=== PATIENT | male | born 1965 | race Caucasian/White ===

== ENCOUNTER 2019-09-20 21:12 | Emergency (ER) | payer BC ==
[2019-09-20 21:26] VITALS: BP 150/87
--- NOTE | 2019-09-20 21:34 | UC ---
Respiratory Complaint HPI - HPI Summary HPI Summary: 53-year-old male comes in with a chief complaint of cough chest congestion and chills. Patient's had upper respiratory tract infection symptoms for more than a month. He was treated with Augmentin which did improve his symptoms over the never went away completely. Last 2 days he started with all of the above symptoms. Feels the congestion worse on the left side of his chest. He does feel somewhat short of breath. Denies any wheezing. - History of Current Complaint Chief Complaint: UCRespiratory Stated Complaint: COUGH,CONGESTION Time Seen by Provider: 09/20/19 21:18 Pain Intensity: 0 - Allergies/Home Medications Allergies/Adverse Reactions: Allergies Allergy/AdvReac Type Severity Reaction Status Date / Time No Known Allergies Allergy Verified 09/20/19 21:26 Home Medications: Home Medications Dm/Acetaminophen/Doxylamine [Vicks Nyquil Cold & Flu N 15-6.25-325 mg] 1 cap PO QPM PRN 09/20/19 [History Confirmed 09/20/19] Guaifenesin/Dextromethorphan [Mucinex Dm ER 600-30 mg Tablet] 1 tab PO Q12H [History Confirmed 09/20/19] PMH/Surg Hx/FS Hx/Imm Hx Previously Healthy: Yes Cardiovascular History: Hypertension - Surgical History Surgical History: None - Family History Known Family History: Positive: Non-Contributory - Social History Alcohol Use: Occasionally Substance Use Type: None Smoking Status (MU): Never Smoked Tobacco Review of Systems All Other Systems Reviewed And Are Negative: Yes Constitutional: Positive: Fever, Other - SEE HPI Skin: Positive: Negative Eyes: Positive: Negative ENT: Positive: Sore Throat, Nasal Discharge, Sinus Congestion Respiratory: Positive: Shortness Of Breath, Cough, Other - SEE HPI Cardiovascular: Positive: Negative Gastrointestinal: Positive: Negative Motor: Positive: Negative Neurovascular: Positive: Negative Musculoskeletal: Positive: Negative Neurological: Positive: Negative Psychological: Positive: Negative Is Patient Immunocompromised?: No Physical Exam Triage Information Reviewed: Yes Appearance: No Pain Distress, Well-Nourished, Ill-Appearing - MILD Vital Signs: Initial Vital Signs Temp 100.2 F 09/20/19 21:21 Pulse 120 09/20/19 21:21 Resp 24 09/20/19 21:21 BP 150/87 09/20/19 21:21 Pulse Ox 95 09/20/19 21:21 Vital Signs Reviewed: Yes Eye Exam: Normal Eyes: Positive: Conjunctiva Clear ENT: Positive: Pharyngeal erythema, Nasal congestion, Nasal drainage, TMs normal Neck: Positive: Supple Respiratory: Positive: Lungs clear, Normal breath sounds, No respiratory distress Cardiovascular: Positive: Tachycardia Musculoskeletal: Positive: Strength Intact, ROM Intact Neurological: Positive: Alert, Muscle Tone Normal Psychological: Positive: Age Appropriate Behavior Skin Exam: Normal Respiratory Course/Dx - Course Course Of Treatment: I discussed the chest x-ray with the patient. I see an infiltrate on the right side. Radiologist reading is pending. Patient is not a smoker and so I'll treat patient treatment of pneumonia will be a commendations of days azithromycin and a third generation cephalosporin cefdinir. Patient is follow- up his primary care doctor. We discussed that if he got worse or do not improve is good emergency department. - Differential Dx/Diagnosis Provider Diagnosis: Pneumonia Discharge ED - Sign-Out/Discharge Documenting (check all that apply): Patient Departure All imaging exams completed and their final reports reviewed: No - Discharge Plan Condition: Stable Disposition: HOME Prescriptions: Azithromycin 250 mg PO DAILY #4 tablet Cefdinir [Cefdinir 300 MG CAP] 300 mg PO BID #19 cap Patient Education Materials: Community Acquired Pneumonia (ED) Referrals: Michelle Jay MD [Primary Care Provider] - Additional Instructions: FOLLOW UP WITH YOUR DOCTOR. GO TO THE EMERGENCY DEPARTMENT IF WORSE; FEVERS, SHORTNESS OF BREATH, YOU FEEL ILL OR ANY QUESTIONS OR CONCERNS. - Billing Disposition and Condition Condition: STABLE Disposition: Home
[2019-09-20] MEDS ORDERED: Cefdinir 250mg/5 ml* 100 ml ORAL.SUSP PO ONE (21:50)
[2019-09-20] MEDS ORDERED: Azithromycin TAB* 250 MG PO ONE (21:51)
--- NOTE | 2019-09-21 19:51 | UC ---
- Progress Note Progress Note: wet read correct Course/Dx - Diagnoses Provider Diagnoses: Pneumonia Discharge ED - Sign-Out/Discharge Documenting (check all that apply): Post-Discharge Follow Up All imaging exams completed and their final reports reviewed: Yes - Discharge Plan Condition: Stable Disposition: HOME Prescriptions: Azithromycin 250 mg PO DAILY #4 tablet Cefdinir [Cefdinir 300 MG CAP] 300 mg PO BID #19 cap Patient Education Materials: Community Acquired Pneumonia (ED) Referrals: Michelle Jay MD [Primary Care Provider] - Additional Instructions: FOLLOW UP WITH YOUR DOCTOR. GO TO THE EMERGENCY DEPARTMENT IF WORSE; FEVERS, SHORTNESS OF BREATH, YOU FEEL ILL OR ANY QUESTIONS OR CONCERNS. - Billing Disposition and Condition Condition: STABLE Disposition: Home
== END 2019-09-20 22:03 | disposition home or self-care (01) ==
LOC: UCEAST 21:12
DX: J18.9 Pneumonia, unspecified organism (principal); I10 Essential (primary) hypertension
CPT/HCPCS: 71046; 99212; A9270-GY; G0463